=== PATIENT | female | born 1985 | race Caucasian/White ===

== ENCOUNTER 2019-10-11 18:36 | Emergency (ER) | payer MEDICAID ==
[~2019-10-11] VITALS: Ht 167.6 cm; Wt 62.1 kg
[2019-10-11] MEDS ORDERED: LORazepam 1MG TABLET ONE (19:30)
[2019-10-11] MEDS ORDERED: LORazepam 1MG TABLET PO ONE (19:30)
[2019-10-11 19:38] LABS: BASOPHILS # (AUTO) 0.02 x10^3/uL (0-0.1); BASOPHILS % (AUTO) 0 % (0-1); EOSINOPHILS # (AUTO) 0.04 x10^3/uL (0-0.4); EOSINOPHILS % (AUTO) 1 % (1-7); LYMPHOCYTES # (AUTO) 2.51 x10^3/uL (1-3.4); LYMPHOCYTES % (AUTO) 30 % (22-44); MD NO; MEAN CORPUSCULAR HEMOGLOBIN 31.6 pg (27.0-34.8); MEAN CORPUSCULAR VOLUME 95.6 fL (80-100); MEAN PLATELET VOLUME 9.8 fL (7.4-10.4); MONOCYTES # (AUTO) 0.37 x10^3/uL (0.2-0.8); MONOCYTES % (AUTO) 4 % (2-9); NEUTROPHILS # (AUTO) 5.55 x10^3/uL (1.8-6.8); NEUTROPHILS % (AUTO) 65 % (42-75); PLATELET COUNT 261 x10^3/uL (130-400); RED BLOOD COUNT 4.59 x10^6/uL (3.82-5.3); RED CELL DISTRIBUTION WIDTH 15.1 % (9.6-15.2)
--- NOTE | 2019-10-11 19:38 | NUR ---
PT AMBULATED TO RESTROOM WITH STEADY GAIT TO PROVIDE URINE SAMPLE. UA COLLECTED AND SENT TO LAB. MEDS ADMIN PER JUL. SEIZURE PADS PLACE D/T HX OF SEIZURES WITH ETOH WD. FRIEND AT BEDSIDE.
[2019-10-11 19:49] LABS: INTERNATIONAL NORMALIZED RATIO 1.01 (0.93-1.1); PROTHROMBIN TIME 10.7 Seconds (9.6-11.5)
[2019-10-11 19:50] LABS: ALANINE AMINOTRANSFERASE 41 U/L (12-78); ANION GAP 13 mmol/L (5-15); CALCIUM 8.5 mg/dL (8.5-10.1); CHLORIDE 106 mmol/L (98-107); CREATININE 0.84 mg/dL (0.55-1.02)
[2019-10-11 19:52] LABS: ALKALINE PHOSPHATASE 42 U/L (45-117); BILIRUBIN,TOTAL 0.7 mg/dL (0.2-1.0)
[2019-10-11] MEDS ORDERED: ONDANSETRON ODT 4 MG ONE (19:52)
[2019-10-11 19:53] LABS: HCG UR SG 1.007 (1.003-1.030); MICROSCOPIC NOT IND
--- NOTE | 2019-10-11 19:59 | NUR ---
PT C/O NAUSEA, INFORMED. VERBAL ORDER RECEIVED FOR ZOFRAN 4MG SL ONCE.
[2019-10-11] MEDS ORDERED: ONDANSETRON ODT 4 MG PO ONE (20:00)
--- NOTE | 2019-10-11 20:10 | NUR ---
ALL RESULTS ARE BACK AT THIS TIME. CHART UP FOR RECHECK.
[2019-10-11 21:17] VITALS: BP 98/62
== END 2019-10-11 21:37 | disposition home or self-care (01) ==
LOC: ED 20:58
DX: F10.239 Alcohol dependence with withdrawal, unspecified (principal); R45.1 Restlessness and agitation; M79.10 Myalgia, unspecified site; Y90.0 Blood alcohol level of less than 20 mg/100 ml
CPT/HCPCS: 36415; 80053; 81003; 81025; 83690; 85025; 85610; 99283; Q0162

== ENCOUNTER 2019-12-17 12:10 | Emergency (ER) | payer MEDICAID ==
[~2019-12-17] VITALS: Ht 170.2 cm; Wt 57.4 kg
--- NOTE | 2019-12-17 12:40 | NUR ---
PT TO RM FROM LOBBY AT THIS TIME
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
[2019-12-17 13:14] LABS: BASOPHILS # (AUTO) 0.01 x10^3/uL (0-0.1); BASOPHILS % (AUTO) 0 % (0-1); EOSINOPHILS % (AUTO) 0 % (1-7); LYMPHOCYTES # (AUTO) 1.92 x10^3/uL (1-3.4); LYMPHOCYTES % (AUTO) 16 % (22-44); MD NO; MEAN CORPUSCULAR HEMOGLOBIN 32.2 pg (27.0-34.8); MEAN CORPUSCULAR HGB CONC 33.8 g/dL (32.4-35.8); MEAN CORPUSCULAR VOLUME 95.3 fL (80-100); MEAN PLATELET VOLUME 9.4 fL (7.4-10.4); MONOCYTES # (AUTO) 0.38 x10^3/uL (0.2-0.8); MONOCYTES % (AUTO) 3 % (2-9); NEUTROPHILS # (AUTO) 9.72 x10^3/uL (1.8-6.8); NEUTROPHILS % (AUTO) 81 % (42-75); PLATELET COUNT 285 x10^3/uL (130-400); RED CELL DISTRIBUTION WIDTH 14.2 % (9.6-15.2)
[2019-12-17 13:27] LABS: ALBUMIN 3.9 g/dL (3.4-5.0); ANION GAP 10 mmol/L (5-15); CHLORIDE 105 mmol/L (98-107)
[2019-12-17 13:33] LABS: ALANINE AMINOTRANSFERASE 34 U/L (12-78); ALKALINE PHOSPHATASE 48 U/L (45-117); BILIRUBIN,TOTAL 1.6 mg/dL (0.2-1.0); CREATININE 0.64 mg/dL (0.55-1.02); TOTAL PROTEIN 7.8 g/dL (6.4-8.2)
[2019-12-17 13:55] VITALS: BP 106/71
--- NOTE | 2019-12-17 13:56 | NUR ---
TASK RN: AWAITING RE-EVAL. NOTED TO HAVE SLURRED SPEECH, NO DISTRESS.
[2019-12-17] MEDS ORDERED: LORazepam 1MG TABLET ONE (16:26)
[2019-12-17] MEDS ORDERED: LORazepam 1MG TABLET PO ONE (16:30)
--- NOTE | 2019-12-17 16:41 | NUR ---
Note alvin in ED - 12/17/19 at 1643 by GOVIND PT AMBULATORY WITH STEADY GAIT, UP TO BR WITHOUT ASSIST. PT REQUESTING TO BE DISCHARGED HOME WITH ATIVAN TO PREVENT WITHDRAWL. PT MEDICATED PER JUL. GIVEN DISCHARGE INSTRUCTIONS AND RESOURCES.
== END 2019-12-17 16:52 | disposition home or self-care (01) ==
LOC: ED 14:00
DX: F10.220 Alcohol dependence with intoxication, uncomplicated (principal); F10.230 Alcohol dependence with withdrawal, uncomplicated; R11.0 Nausea; R10.12 Left upper quadrant pain; R45.1 Restlessness and agitation; R94.31 Abnormal electrocardiogram [ECG] [EKG]; Y90.0 Blood alcohol level of less than 20 mg/100 ml
CPT/HCPCS: 36415; 80053; 80307; 83690; 84703; 85025; 93005; 99284

== ENCOUNTER 2020-01-12 12:05 | Emergency (ER) | payer MEDICAID ==
[~2020-01-12] VITALS: Ht 167.6 cm; Wt 57.5 kg
--- NOTE | 2020-01-12 12:48 | NUR ---
PT HERE FOR C/O LACK OF APPETITE AND FEELING WEAK OVER THE LAST 3 MONTHS, AND MOST RECENTLY CRAMPS ON LEGS AND FEET. PLACED ON VITALS MONITORS. PROVIDER AT BEDSIDE FOR EVAL.
[2020-01-12] MEDS ORDERED: ONDANSETRON 2MG/ML, 2ML IVPush ONE (13:00)
[2020-01-12] MEDS ORDERED: FAMOTIDINE 20 MG/2 ML IV ONE (13:00)
[2020-01-12] MEDS ORDERED: SODIUM CHLORIDE 0.9% 1,000ML IVBOLUS ONE (13:00)
[2020-01-12 13:08] LABS: BASOPHILS # (AUTO) 0.02 x10^3/uL (0-0.1); BASOPHILS % (AUTO) 0 % (0-1); EOSINOPHILS # (AUTO) 0.03 x10^3/uL (0-0.4); EOSINOPHILS % (AUTO) 0 % (1-7); LYMPHOCYTES # (AUTO) 1.25 x10^3/uL (1-3.4); LYMPHOCYTES % (AUTO) 20 % (22-44); MD NO; MEAN CORPUSCULAR HEMOGLOBIN 32.6 pg (27.0-34.8); MEAN CORPUSCULAR HGB CONC 33.6 g/dL (32.4-35.8); MEAN PLATELET VOLUME 8.9 fL (7.4-10.4); MONOCYTES # (AUTO) 0.29 x10^3/uL (0.2-0.8); MONOCYTES % (AUTO) 5 % (2-9); NEUTROPHILS # (AUTO) 4.57 x10^3/uL (1.8-6.8); NEUTROPHILS % (AUTO) 74 % (42-75); PLATELET COUNT 345 x10^3/uL (130-400); RED BLOOD COUNT 4.42 x10^6/uL (3.82-5.3); RED CELL DISTRIBUTION WIDTH 13.9 % (9.6-15.2)
[2020-01-12] MEDS ORDERED: ONDANSETRON 2MG/ML, 2ML ONE (13:08)
[2020-01-12] MEDS ORDERED: FAMOTIDINE 20 MG/2 ML ONE (13:08)
[2020-01-12] MEDS ORDERED: TRAZ-175 PO (13:12)
[2020-01-12] MEDS ORDERED: MAALOX/HYOSCYAMINE/LIDOCAINE 45 ML BTL ONE (13:17)
[2020-01-12 13:19] LABS: ALANINE AMINOTRANSFERASE 36 U/L (12-78); ALBUMIN 3.8 g/dL (3.4-5.0); ANION GAP 6 mmol/L (5-15); CALCIUM 8.5 mg/dL (8.5-10.1); CHLORIDE 105 mmol/L (98-107); CREATININE 0.82 mg/dL (0.55-1.02)
[2020-01-12 13:24] LABS: ALKALINE PHOSPHATASE 49 U/L (45-117); BILIRUBIN,TOTAL 1.4 mg/dL (0.2-1.0); TOTAL PROTEIN 8.1 g/dL (6.4-8.2)
[2020-01-12] MEDS ORDERED: MAALOX/HYOSCYAMINE/LIDOCAINE 45 ML BTL PO ONE (13:30)
[2020-01-12 13:49] LABS: MICROSCOPIC NOT IND
[2020-01-12 14:36] VITALS: BP 111/78
--- NOTE | 2020-01-12 14:44 | NUR ---
PT RESTING ON MUSHTAQ MCINTOSH. CALL LIGHT WITHIN REACH.
--- NOTE | 2020-01-12 15:36 | NUR ---
PT TRANSPORTED TO CT.
--- NOTE | 2020-01-12 16:46 | NUR ---
TASK RN: PT TO CT AT THIS TIME
== END 2020-01-12 17:52 | disposition home or self-care (01) ==
LOC: ED 14:11
DX: K29.00 Acute gastritis without bleeding (principal); R11.2 Nausea with vomiting, unspecified
CPT/HCPCS: 36415; 74021; 74177; 80053; 81003; 83690; 83735; 84703; 85025; 96361; 96374; 96375; 99285; J2405; J3490; J7030

== ENCOUNTER 2020-02-06 00:46 | Emergency (ER) | payer MEDICAID ==
[~2020-02-06] VITALS: Ht 167.6 cm; Wt 57.0 kg
[~2020-02-06 00:46] MED LIST: TRAZ-175 PO
[2020-02-06] MEDS ORDERED: SODIUM CHLORIDE 0.9% 1,000ML IVBOLUS ONE (01:00)
[2020-02-06] MEDS ORDERED: MORPHINE SULFATE 4 MG/ML, 1ML IVPush PRN (01:00)
[2020-02-06] MEDS ORDERED: ONDANSETRON 2MG/ML, 2ML IVPush ONE (01:00)
[2020-02-06] MEDS ORDERED: SODIUM CHLORIDE FLUSH 10ML SYR IVF ONE (01:00)
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
[2020-02-06] MEDS ORDERED: MORPHINE SULFATE 4 MG/ML, 1ML ONE (01:02)
[2020-02-06] MEDS ORDERED: ONDANSETRON 2MG/ML, 2ML ONE (01:03)
[2020-02-06 01:29] LABS: BASOPHILS # (AUTO) 0.02 x10^3/uL (0-0.1); BASOPHILS % (AUTO) 0 % (0-1); EOSINOPHILS # (AUTO) 0.02 x10^3/uL (0-0.4); EOSINOPHILS % (AUTO) 0 % (1-7); LYMPHOCYTES # (AUTO) 1.92 x10^3/uL (1-3.4); LYMPHOCYTES % (AUTO) 21 % (22-44); MD NO; MEAN CORPUSCULAR HEMOGLOBIN 32.5 pg (27.0-34.8); MEAN CORPUSCULAR HGB CONC 33.2 g/dL (32.4-35.8); MEAN PLATELET VOLUME 8.8 fL (7.4-10.4); MONOCYTES # (AUTO) 0.27 x10^3/uL (0.2-0.8); MONOCYTES % (AUTO) 3 % (2-9); NEUTROPHILS # (AUTO) 7.15 x10^3/uL (1.8-6.8); NEUTROPHILS % (AUTO) 76 % (42-75); PLATELET COUNT 304 x10^3/uL (130-400); RED BLOOD COUNT 4.05 x10^6/uL (3.82-5.3); RED CELL DISTRIBUTION WIDTH 14.3 % (9.6-15.2)
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
[2020-02-06 01:42] LABS: ALANINE AMINOTRANSFERASE 33 U/L (12-78); ALBUMIN 3.1 g/dL (3.4-5.0); ANION GAP 7 mmol/L (5-15); CALCIUM 7.9 mg/dL (8.5-10.1); CHLORIDE 109 mmol/L (98-107); CREATININE 0.73 mg/dL (0.55-1.02)
[2020-02-06 01:47] LABS: ALKALINE PHOSPHATASE 58 U/L (45-117); BILIRUBIN,TOTAL 0.4 mg/dL (0.2-1.0); TOTAL PROTEIN 7.4 g/dL (6.4-8.2)
[2020-02-06] MEDS ORDERED: PANTOPRAZOLE 40 MG IV IVPush ONE (02:00)
[2020-02-06] MEDS ORDERED: PANTOPRAZOLE 40 MG IV ONE (02:12)
[2020-02-06 02:16] LABS: MICROSCOPIC INDICATED
[2020-02-06 02:20] VITALS: BP 108/70
[2020-02-06 02:20] LABS: AMPHETAMINE SCREEN, URINE Negative (Negative); BARBITURATE SCREEN, URINE Negative (Negative); BENZODIAZEPINE SCREEN, URINE Positive (Negative); CANNABINOID SCREEN, URINE Positive (Negative); COCAINE SCREEN, URINE Negative (Negative); METHADONE SCREEN, URINE Negative (Negative); OPIATE SCREEN, URINE Positive (Negative)
[2020-02-06] MEDS ORDERED: CIPROFLOXACIN 500 MG TABLET PO ONE (02:30)
--- NOTE | 2020-02-06 02:31 | NUR ---
PATIENT MEDICATED PER EMAR, TOLERATED WELL.
[2020-02-06] MEDS ORDERED: CIPROFLOXACIN 500 MG TABLET ONE (02:35)
--- NOTE | 2020-02-06 02:53 | NUR ---
Patient given discharge instructions and they have confirmed that they understand the instructions. Patient ambulatory with steady gait in room, wheeled to discharge for patient comfort
--- NOTE | 2020-02-08 14:55 | NUR ---
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
== END 2020-02-06 02:55 | disposition home or self-care (01) ==
LOC: ED 01:34
DX: N30.00 Acute cystitis without hematuria (principal); K29.20 Alcoholic gastritis without bleeding; R10.13 Epigastric pain
CPT/HCPCS: 36415; 80053; 80307; 81001; 83690; 84703; 85025; 87077; 87086; 87186; 96361; 96374; 96375; 99284; C9113; J2270; J2405; J7030

== ENCOUNTER 2020-02-09 11:08 | Emergency (ER) | payer MEDICAID ==
[~2020-02-09] VITALS: Ht 167.6 cm; Wt 58.0 kg
[2020-02-09] MEDS ORDERED: FAMOTIDINE 20 MG/2 ML ONE (11:45)
[2020-02-09] MEDS ORDERED: MAALOX/HYOSCYAMINE/LIDOCAINE 45 ML BTL ONE (11:45)
[2020-02-09] MEDS ORDERED: MORPHINE SULFATE 4 MG/ML, 1ML ONE (11:45)
[2020-02-09] MEDS ORDERED: ONDANSETRON 2MG/ML, 2ML ONE (11:45)
[2020-02-09] MEDS ORDERED: FAMOTIDINE 20 MG/2 ML IV ONE (12:00)
[2020-02-09] MEDS ORDERED: ONDANSETRON 2MG/ML, 2ML IVPush ONE (12:00)
[2020-02-09] MEDS ORDERED: SODIUM CHLORIDE FLUSH 10ML SYR IVF ONE (12:00)
[2020-02-09] MEDS ORDERED: SODIUM CHLORIDE 0.9% 1,000ML IVBOLUS ONE (12:00)
[2020-02-09] MEDS ORDERED: MAALOX/HYOSCYAMINE/LIDOCAINE 45 ML BTL PO ONE (12:00)
[2020-02-09 12:11] LABS: BASOPHILS % (AUTO) 1 % (0-1); EOSINOPHILS % (AUTO) 1 % (1-7); LYMPHOCYTES % (AUTO) 43 % (22-44); MEAN CORPUSCULAR HEMOGLOBIN 32.6 pg (27.0-34.8); MEAN CORPUSCULAR HGB CONC 34.2 g/dL (32.4-35.8); MEAN PLATELET VOLUME 9.2 fL (7.4-10.4); MONOCYTES % (AUTO) 6 % (2-9); NEUTROPHILS % (AUTO) 49 % (42-75); PLATELET COUNT 331 x10^3/uL (130-400); RED BLOOD COUNT 4.46 x10^6/uL (3.82-5.3); RED CELL DISTRIBUTION WIDTH 13.4 % (9.6-15.2)
[2020-02-09 12:12] LABS: MD NO
[2020-02-09 12:53] LABS: ALANINE AMINOTRANSFERASE 37 U/L (12-78); ALBUMIN 3.6 g/dL (3.4-5.0); ANION GAP 5 mmol/L (5-15); CALCIUM 8.5 mg/dL (8.5-10.1); CHLORIDE 110 mmol/L (98-107); CREATININE 0.73 mg/dL (0.55-1.02)
[2020-02-09 13:00] LABS: ALKALINE PHOSPHATASE 76 U/L (45-117); BILIRUBIN,TOTAL 0.5 mg/dL (0.2-1.0); TOTAL PROTEIN 8.3 g/dL (6.4-8.2)
[2020-02-09 13:53] VITALS: BP 135/87
--- NOTE | 2020-02-09 14:01 | NUR ---
PT DENIES N/V AFTER PO FLUIDS.
== END 2020-02-09 15:14 | disposition home or self-care (01) ==
LOC: ED 11:57
DX: K29.21 Alcoholic gastritis with bleeding (principal); R19.5 Other fecal abnormalities; N30.00 Acute cystitis without hematuria; Z88.5 Allergy status to narcotic agent; Z87.891 Personal history of nicotine dependence
CPT/HCPCS: 36415; 80053; 83690; 84703; 85025; 96361; 96374; 96375; 99284; J2405; J3490; J7030; 96376

== ENCOUNTER 2020-02-11 05:31 | Emergency (ER) | payer MEDICAID ==
[~2020-02-11] VITALS: Ht 167.6 cm; Wt 63.8 kg
--- NOTE | 2020-02-11 05:46 | NUR ---
Patient BIB ambulance c/o general malaise, vomiting blood, and diarrhea with blood. Patient states she was a heavy drinker then quit awhile ago, but relapsed two weeks ago. She states she has been drinking non-stop since then. Her last drink was yesterday around 0800. Patient states she was recently dx with e.coli. She has not been able to eat or drink anything x2 days. Per EMS, patient was unresponsive on arrival. She had +orthostatics. She became AAO en route to hospital. She received Zofran and 500mL NS VOCATIONAL NURSE LVN. Patient has generalized weakness and slow speech. Respirations even and unlabored.
[2020-02-11] MEDS ORDERED: SODIUM CHLORIDE 0.9% 1,000ML IVBOLUS ONE (06:00)
[2020-02-11] MEDS ORDERED: METOCLOPRAMIDE 5 MG/ML, 2ML IVPush ONE (06:00)
[2020-02-11] MEDS ORDERED: FAMOTIDINE 20 MG/2 ML IV ONE (06:00)
[2020-02-11] MEDS ORDERED: METOCLOPRAMIDE 5 MG/ML, 2ML ONE (06:09)
[2020-02-11] MEDS ORDERED: FAMOTIDINE 20 MG/2 ML ONE (06:09)
[2020-02-11 06:26] LABS: ALANINE AMINOTRANSFERASE 42 U/L (12-78); ALBUMIN 3.3 g/dL (3.4-5.0); ANION GAP 7 mmol/L (5-15); CALCIUM 7.9 mg/dL (8.5-10.1); CHLORIDE 110 mmol/L (98-107)
[2020-02-11 06:28] LABS: ALKALINE PHOSPHATASE 78 U/L (45-117); BILIRUBIN,TOTAL 0.4 mg/dL (0.2-1.0); CREATININE 0.84 mg/dL (0.55-1.02); TOTAL PROTEIN 7.6 g/dL (6.4-8.2)
[2020-02-11] MEDS ORDERED: PLEASE ENTER HEIGHT AND WEIGHT MC SCH ×2 (06:30)
--- NOTE | 2020-02-11 06:37 | NUR ---
Straight cath performed; urine sent to lab.
[2020-02-11 06:39] LABS: BASOPHILS % (AUTO) 1 % (0-1); EOSINOPHILS % (AUTO) 0 % (1-7); LYMPHOCYTES % (AUTO) 31 % (22-44); MEAN CORPUSCULAR HEMOGLOBIN 32.1 pg (27.0-34.8); MEAN CORPUSCULAR HGB CONC 33.2 g/dL (32.4-35.8); MEAN PLATELET VOLUME 9.2 fL (7.4-10.4); MONOCYTES % (AUTO) 4 % (2-9); NEUTROPHILS % (AUTO) 64 % (42-75); PLATELET COUNT 235 x10^3/uL (130-400); RED BLOOD COUNT 4.42 x10^6/uL (3.82-5.3); RED CELL DISTRIBUTION WIDTH 13.9 % (9.6-15.2)
[2020-02-11 06:57] LABS: MD NO
[2020-02-11 07:00] LABS: MICROSCOPIC NOT IND
[2020-02-11] MEDS ORDERED: THIAMINE 100MG TABLET PO ONE (07:30)
[2020-02-11] MEDS ORDERED: THIAMINE 100MG TABLET ONE (07:31)
[2020-02-11 07:58] VITALS: BP 103/74
== END 2020-02-11 08:01 | disposition home or self-care (01) ==
LOC: ED 06:43
DX: K29.20 Alcoholic gastritis without bleeding (principal); F10.220 Alcohol dependence with intoxication, uncomplicated; R55 Syncope and collapse; R10.10 Upper abdominal pain, unspecified; Y90.0 Blood alcohol level of less than 20 mg/100 ml
CPT/HCPCS: 36415; 80053; 80307; 81003; 83690; 85025; 93005; 96374; 96375; 99284; J2765; J3490; J7030

== ENCOUNTER 2020-03-07 07:49 | Emergency (ER) | payer MEDICAID ==
[~2020-03-07] VITALS: Ht 165.1 cm; Wt 60.0 kg
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
--- NOTE | 2020-03-07 08:26 | NUR ---
PATIENT NOW STATING SHE'S TOTALLY FINE AND SHE WANTS TO GO HOME. REASSURED HER SHE NEEDS TO STAY, THAT [place] PD HAS BEEN CONSULTED AND SHE NEEDS MEDICAL CARE
[2020-03-07 08:32] LABS: MEAN CORPUSCULAR HEMOGLOBIN 32.1 pg (27.0-34.8); MEAN CORPUSCULAR HGB CONC 32.7 g/dL (32.4-35.8); MEAN PLATELET VOLUME 8.2 fL (7.4-10.4); PLATELET COUNT 287 x10^3/uL (130-400); RED BLOOD COUNT 4.28 x10^6/uL (3.82-5.3); RED CELL DISTRIBUTION WIDTH 14.5 % (9.6-15.2)
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
[2020-03-07 08:42] LABS: ALANINE AMINOTRANSFERASE 36 U/L (12-78); ALBUMIN 3.5 g/dL (3.4-5.0); ANION GAP 8 mmol/L (5-15); CALCIUM 8.6 mg/dL (8.5-10.1); CHLORIDE 110 mmol/L (98-107); CREATININE 0.69 mg/dL (0.55-1.02)
[2020-03-07 08:44] LABS: ALKALINE PHOSPHATASE 83 U/L (45-117); BILIRUBIN,TOTAL 0.3 mg/dL (0.2-1.0); TOTAL PROTEIN 8.3 g/dL (6.4-8.2)
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
[2020-03-07 08:48] LABS: SALICYLATE LEVEL < 1.7 mg/dL (2.8-20.0)
[2020-03-07 09:09] LABS: AMPHETAMINE SCREEN, URINE Negative (Negative); BARBITURATE SCREEN, URINE Negative (Negative); CANNABINOID SCREEN, URINE Negative (Negative); COCAINE SCREEN, URINE Negative (Negative); METHADONE SCREEN, URINE Negative (Negative); OPIATE SCREEN, URINE Negative (Negative)
[2020-03-07 09:09] LABS: MD YES
--- NOTE | 2020-03-07 09:10 | NUR ---
got patient juice and ordered diet tray. patient alcohol 0.41. will redraw in a few hours.
[2020-03-07 09:11] LABS: BENZODIAZEPINE SCREEN, URINE Positive (Negative)
[2020-03-07 09:11] LABS: <PLATELET ESTIMATE> ADEQUATE; <PLT MORPHOLOGY> NORMAL PLT MORPH; <RBC MORPHOLOGY> NORMAL; BASOS#(MANUAL) 0.03 x10^3/uL (0-0.1); BASOS% (MANUAL) 1 % (0-1); EOS#(MANUAL) 0.03 x10^3/uL (0.0-0.4); EOS% (MANUAL) 1 % (1-7); LYMPHS% (MANUAL) 44 % (22-44); MONOS#(MANUAL) 0.34 x10^3/uL (0.3-2.7); MONOS% (MANUAL) 10 % (2-9); SEGS% (MANUAL) 44 % (42-75)
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
--- NOTE | 2020-03-07 10:01 | NUR ---
she ate all of meal tray
--- NOTE | 2020-03-07 10:31 | NUR ---
RUBÉN HERE TAKING STATEMENT
--- NOTE | 2020-03-07 11:22 | NUR ---
PATIENT UP TO BATHROOM, HAD 400 ML OUT CLEAR YELLOW URINE.
--- NOTE | 2020-03-07 11:40 | NUR ---
OFFICER DAPHNE TOOK PATIENTS CLOTHES EVIDENCE AND SART TEAM TO COME ASSESS PATIENT. PATIENTS PURSE IS IN BELONGINGS LOCKER
--- NOTE | 2020-03-07 11:44 | NUR ---
POLICE RETURNED CLOTHES APPARENTLY THEY ARE NOT EVIDENCE, PUT ON LOCKER.
--- NOTE | 2020-03-07 12:28 | NUR ---
PATIENT RESTING QUIETLY.
--- NOTE | 2020-03-07 12:58 | NUR ---
CHECKED TWO BOTTLES OF PROPANOLOL INTO PHARMACY, THEY DATE FROM NOVEMBER AND DEC AND AND THERE ARE HIGH QUANTITIES IN BOTH BOTTLES.
--- NOTE | 2020-03-07 13:32 | NUR ---
TALKED TO MD ABOUT REDRAW OF BLOOD ALCOHOL, IN PROGRESS.
--- NOTE | 2020-03-07 13:47 | NUR ---
[phone] EMERGENCY CONTACT. WANTS UPDATE
--- NOTE | 2020-03-07 14:18 | NUR ---
PATIENT SWEATY AND STATES FEELS HEART RACING, STATES ON LIBRIUM (JUST TOLD ME THIS) FOR ALCOHOL WITHDRAWAL. WILL ALERT MD FOR POSSIBLE EKG AND TAKING VITALS.
[2020-03-07] MEDS ORDERED: LIBRIUM PO (14:20)
[2020-03-07] MEDS ORDERED: CLON-275 PO (14:22)
[2020-03-07] MEDS ORDERED: PROP10TA16 PO (14:22)
[2020-03-07] MEDS ORDERED: QUET25TA5 PO (14:22)
--- NOTE | 2020-03-07 14:34 | NUR ---
12 lead completed erp aware rachel
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
--- NOTE | 2020-03-07 16:01 | NUR ---
HELPED PATIENT CALL [facility] TO RESCHEDULE HER INTERVIEW. SHE IS TREMULOUS. WILL FOLLOW UP WITH MD ABOUT BENZO
[2020-03-07] MEDS ORDERED: ONDANSETRON ODT 4 MG ONE (16:04)
[2020-03-07] MEDS ORDERED: LORazepam 1MG TABLET ONE (16:05)
--- NOTE | 2020-03-07 16:13 | NUR ---
PATIENT BARFING AND TREMULOUS. TALKED TO MD AND MEDS ORDERED. GAVE ZOFRAN, AND THEN TALKED TO MD ABOUT A PREG TEST PRIOR TO ATIVAN ADMINISTRATION. PATIENT STATES PERIOD A WEEK AGO BUT IS UNCERTAIN IF , STATES DOUBTFUL.
[2020-03-07] MEDS ORDERED: LORazepam 1MG TABLET PO ONE ×2 (16:30→17:00)
[2020-03-07] MEDS ORDERED: ONDANSETRON ODT 4 MG PO ONE (16:30)
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
--- NOTE | 2020-03-07 17:17 | NUR ---
TELEPSYCH IN ROOM, TECH AWARE OF #
--- NOTE | 2020-03-07 17:20 | NUR ---
LET MD KNOW THAT PATIENT MEDICALLY READY FOR TELEPSYCH, AND TELEPSYCH ORDERED.
--- NOTE | 2020-03-07 17:39 | NUR ---
GAVE PATIENT DINNER
--- NOTE | 2020-03-07 17:42 | NUR ---
CALLED ERON BACK TO VERIFY THAT HE WAS WITH HER LAST NIGHT. 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 SHE WAS IN AND OUT ASLEEP, HE STATES SHE WAS SOMEWHAT OUT OF IT AND HE THOUGHT IT WAS JUST HER TAKING HER SLEEPING PILLS AND THIS IS SOMEWHAT NORMAL BEHAVIOR FOR HER. HE DOES'T DRINK.
--- NOTE | 2020-03-07 17:46 | NUR ---
ERON STATES THERE ARE CAMERAS AT HER APT BUILDING - [id number] - TO VERIFY THEY WERE HOME.
--- NOTE | 2020-03-07 18:00 | NUR ---
PATIENT TALKING TO TELEPSYCH
--- NOTE | 2020-03-07 18:53 | NUR ---
LET ERON FRIEND VISIT SO LONG THEY ARE CALM. HE CONFRONTED PATIENT WITH HER DISHONESTY LAST NIGHT, SHE TEARED UP CRYING AND DIDN'T SAY MUCH. LET THEM VISIT
--- NOTE | 2020-03-07 19:02 | NUR ---
PATIENT CARE RELIQUINSHED TO ED RN, SBAR.
--- NOTE | 2020-03-07 20:08 | NUR ---
Patient/Caregiver given discharge instructions and they have confirmed that they understand the instructions. Patient ambulatory with steady gait.
[2020-03-07 20:09] VITALS: BP 122/81
== END 2020-03-07 20:19 | disposition home or self-care (01) ==
LOC: ED 09:09
DX: T50.991A Poisoning by other drugs, medicaments and biological substances, accidental (unintentional), initial encounter (principal); F10.220 Alcohol dependence with intoxication, uncomplicated; R51.9 Headache, unspecified; R00.0 Tachycardia, unspecified; Z87.891 Personal history of nicotine dependence; Y90.0 Blood alcohol level of less than 20 mg/100 ml; Y04.8XXA Assault by other bodily force, initial encounter; Y93.89 Activity, other specified; Y92.89 Other specified places as the place of occurrence of the external cause; Y99.8 Other external cause status
CPT/HCPCS: 36415; 80053; 80307; 84702; 85025; 93005; 99285; Q0162; 99406

== ENCOUNTER 2020-06-23 03:17 | Emergency (ER) | payer MEDICAID ==
[~2020-06-23] VITALS: Ht 167.6 cm; Wt 60.0 kg
[~2020-06-23 03:17] MED LIST changes: +CLON-275 PO; +LIBRIUM PO; +PROP10TA16 PO; +QUET25TA5 PO
--- NOTE | 2020-06-23 03:36 | NUR ---
INITIAL PT CONTACT. PT PRESENTS TO ED C/O ABD PAIN AND VOMITING BLOOD, "GOING ON FOR ABOUT 2 MONTHS." PT STATES SHE HAS "BEEN VOMITING BLOOD AND PASSING OUT." PT IS SUPPOSED TO HAVE GALLBLADDER SURGERY LATER THIS WEEK. PT ACCOMPAINIED BY SPOUSE. PT SITTING UPRIGHT ON GURNEY, CALL LIGHT AND PERSONAL BELONGINGS WITHIN REACH. ERP AT BEDSIDE.
[2020-06-23] MEDS ORDERED: DICYCLOMINE 10 MG/ML, 2ML ONE (03:44)
[2020-06-23] MEDS ORDERED: ONDANSETRON 2MG/ML, 2ML ONE (03:44)
[2020-06-23 03:58] LABS: MEAN CORPUSCULAR HEMOGLOBIN 34.1 pg (27.0-34.8); MEAN CORPUSCULAR HGB CONC 33.6 g/dL (32.4-35.8); PLATELET COUNT 242 x10^3/uL (130-400); RED BLOOD COUNT 4.11 x10^6/uL (3.82-5.3); RED CELL DISTRIBUTION WIDTH 15.3 % (9.6-15.2)
[2020-06-23] MEDS ORDERED: SODIUM CHLORIDE FLUSH 10ML SYR IVF ONE (04:00)
[2020-06-23] MEDS ORDERED: SODIUM CHLORIDE 0.9% 1,000ML IVBOLUS ONE (04:00)
[2020-06-23] MEDS ORDERED: DICYCLOMINE 10 MG/ML, 2ML IM ONE (04:00)
[2020-06-23] MEDS ORDERED: ONDANSETRON 2MG/ML, 2ML IVPush ONE (04:00)
[2020-06-23 04:08] LABS: ALANINE AMINOTRANSFERASE 35 U/L (12-78); ALBUMIN 3.2 g/dL (3.4-5.0); ANION GAP 12 mmol/L (5-15); CALCIUM 8.3 mg/dL (8.5-10.1); CHLORIDE 109 mmol/L (98-107); CREATININE 0.67 mg/dL (0.55-1.02)
[2020-06-23 04:13] LABS: ALKALINE PHOSPHATASE 103 U/L (45-117); BILIRUBIN,TOTAL 0.2 mg/dL (0.2-1.0); TOTAL PROTEIN 8.1 g/dL (6.4-8.2)
[2020-06-23 04:22] LABS: MD YES
[2020-06-23 04:26] LABS: ANISOCYTOSIS 1+; BAND#(MANUAL) 0.03 x10^3/uL; BANDS%(MANUAL) 1 % (0-7); BASOS#(MANUAL) 0.03 x10^3/uL (0-0.1); BASOS% (MANUAL) 1 % (0-1); EOS#(MANUAL) 0.03 x10^3/uL (0.0-0.4); EOS% (MANUAL) 1 % (1-7); LYMPH#(MANUAL) 1.87 x10^3/uL (1-3.4); LYMPHS% (MANUAL) 55 % (22-44); MONOS#(MANUAL) 0.17 x10^3/uL (0.3-2.7); MONOS% (MANUAL) 5 % (2-9); SEG#(MANUAL) 1.26 x10^3/uL (1.8-6.8); SEGS% (MANUAL) 37 % (42-75)
[2020-06-23 04:27] LABS: <PLATELET ESTIMATE> ADEQUATE; <PLT MORPHOLOGY> NORMAL PLT MORPH
[2020-06-23 05:16] VITALS: BP 112/74
--- NOTE | 2020-06-23 05:22 | NUR ---
Patient given discharge instructions and they have confirmed that they understand the instructions. Patient ambulatory with steady gait to d/c desk.
== END 2020-06-23 05:24 | disposition home or self-care (01) ==
LOC: ED 05:08
DX: K29.20 Alcoholic gastritis without bleeding (principal); R10.13 Epigastric pain; R11.10 Vomiting, unspecified; F10.129 Alcohol abuse with intoxication, unspecified; Y90.0 Blood alcohol level of less than 20 mg/100 ml
CPT/HCPCS: 36415; 80053; 80320; 83690; 84703; 85025; 93005; 96361; 96372; 96374; 99284; J0500; J2405; J7030; G0480

== ENCOUNTER 2020-08-15 22:57 | Emergency (ER) | payer MEDICAID ==
[~2020-08-15] VITALS: Ht 167.6 cm; Wt 58.0 kg
[2020-08-15] MEDS ORDERED: PROMETHAZINE 25 MG/ML, 1ML ONE (23:42)
[2020-08-15] MEDS ORDERED: FAMOTIDINE 20 MG/2 ML ONE (23:44)
[2020-08-15] MEDS ORDERED: HYDROmorphone 1 MG/ML, 1ML INJ ONE (23:44)
[2020-08-16] MEDS ORDERED: SODIUM CHLORIDE FLUSH 10ML SYR IVF ONE
[2020-08-16] MEDS ORDERED: PROMETHAZINE 25 MG/ML, 1ML IM ONE
[2020-08-16] MEDS ORDERED: FAMOTIDINE 20 MG/2 ML IVPush ONE
[2020-08-16] MEDS ORDERED: SODIUM CHLORIDE 0.9% 1,000ML IVBOLUS ONE
[2020-08-16 00:01] LABS: BASOPHILS % (AUTO) 1 % (0-1); EOSINOPHILS % (AUTO) 0 % (1-7); LYMPHOCYTES % (AUTO) 11 % (22-44); MEAN CORPUSCULAR HEMOGLOBIN 31.9 pg (27.0-34.8); MEAN CORPUSCULAR HGB CONC 33.6 g/dL (32.4-35.8); MEAN PLATELET VOLUME 9.7 fL (7.4-10.4); MONOCYTES % (AUTO) 3 % (2-9); NEUTROPHILS % (AUTO) 85 % (42-75); PLATELET COUNT 197 x10^3/uL (130-400); RED BLOOD COUNT 4.26 x10^6/uL (3.82-5.3); RED CELL DISTRIBUTION WIDTH 14.8 % (9.6-15.2)
[2020-08-16 00:07] LABS: MD NO
[2020-08-16 00:10] LABS: ALANINE AMINOTRANSFERASE 36 U/L (12-78); ALBUMIN 3.8 g/dL (3.4-5.0); ANION GAP 15 mmol/L (5-15); CALCIUM 9.1 mg/dL (8.5-10.1); CHLORIDE 100 mmol/L (98-107); CREATININE 0.72 mg/dL (0.55-1.02)
[2020-08-16 00:15] LABS: ALKALINE PHOSPHATASE 87 U/L (45-117); BILIRUBIN,TOTAL 0.7 mg/dL (0.2-1.0); TOTAL PROTEIN 8.4 g/dL (6.4-8.2)
--- NOTE | 2020-08-16 00:26 | NUR ---
EMERGENCY CONTACT: Kash Gutierrez [phone]
[2020-08-16] MEDS ORDERED: HYDROmorphone 1 MG/ML, 1ML INJ IV ONE ×2 (01:00)
[2020-08-16] MEDS ORDERED: HYDROmorphone 1 MG/ML, 1ML INJ ONE (01:13)
--- NOTE | 2020-08-16 01:15 | NUR ---
PT RESTING IN BED, ERP AT BEDSIDE, VSS
--- NOTE | 2020-08-16 02:00 | NUR ---
Patient given discharge instructions and they have confirmed that they understand the instructions. Patient getting dressed.
[2020-08-16 02:01] VITALS: BP 130/81
== END 2020-08-16 02:26 | disposition home or self-care (01) ==
LOC: ED 23:58
DX: K29.20 Alcoholic gastritis without bleeding (principal); R10.13 Epigastric pain; F10.229 Alcohol dependence with intoxication, unspecified; Z72.9 Problem related to lifestyle, unspecified; R00.0 Tachycardia, unspecified; Y90.0 Blood alcohol level of less than 20 mg/100 ml; Z90.49 Acquired absence of other specified parts of digestive tract; Z88.5 Allergy status to narcotic agent
CPT/HCPCS: 36415; 80053; 80320; 83690; 84703; 85025; 93005; 96361; 96372; 96374; 96375; 96376; 99284; J1170; J2550; J7030; G0480

== ENCOUNTER 2020-08-21 10:19 | Inpatient (IN) | payer MEDICAID ==
[~2020-08-21] VITALS: Ht 167.6 cm; Wt 65.3 kg
[2020-08-21] MEDS ORDERED: ONDANSETRON 2MG/ML, 2ML ONE (10:27)
--- NOTE | 2020-08-21 10:27 | NUR ---
Note alvin in EDM - 08/21/20 at 1030 by MARYSOL pt straight back. pt w/ c/o of N/V x1 week. States shes been vomiting bright red blood starting today. Had gall bladder removed july 08, where she had an artery cut. bs 164. pt attached to monitors. Sinus tach on monitors, all other vss. Friend at bedside. awaitng orders.
[2020-08-21] MEDS ORDERED: ONDANSETRON 2MG/ML, 2ML IVPush ONE (10:30)
[2020-08-21] MEDS ORDERED: SODIUM CHLORIDE 0.9% 1,000ML IVBOLUS ONE (10:30)
--- NOTE | 2020-08-21 10:30 | NUR ---
pt straight back. pt w/ c/o of N/V x1 week. States shes been vomiting bright red blood starting today. Had gall bladder removed july 08, where she had an artery cut. bs 164. pt attached to monitors. Sinus tach on monitors, all other vss. Friend at bedside. awaitng orders.
--- NOTE | 2020-08-21 10:39 | NUR ---
DR.VAN TEE AT BEDSIDE FOR EVALUATION. PT MEDICATED PER EMAR. MUSHTAQ. CARMEN.
[2020-08-21 11:10] LABS: MEAN CORPUSCULAR HEMOGLOBIN 31.9 pg (27.0-34.8); MEAN CORPUSCULAR HGB CONC 33.8 g/dL (32.4-35.8); MEAN PLATELET VOLUME 10.2 fL (7.4-10.4); PLATELET COUNT 150 x10^3/uL (130-400); RED BLOOD COUNT 4.84 x10^6/uL (3.82-5.3); RED CELL DISTRIBUTION WIDTH 15.2 % (9.6-15.2)
[2020-08-21 11:20] LABS: ALANINE AMINOTRANSFERASE 52 U/L (12-78); ALBUMIN 3.8 g/dL (3.4-5.0); ANION GAP 11 mmol/L (5-15); CALCIUM 8.9 mg/dL (8.5-10.1); CHLORIDE 100 mmol/L (98-107); CREATININE 0.76 mg/dL (0.55-1.02)
[2020-08-21 11:23] LABS: ALKALINE PHOSPHATASE 109 U/L (45-117); BILIRUBIN,TOTAL 0.6 mg/dL (0.2-1.0); TOTAL PROTEIN 9.1 g/dL (6.4-8.2)
[2020-08-21 11:37] LABS: MD YES
[2020-08-21 11:46] LABS: LYMPH#(MANUAL) 2.13 x10^3/uL (1-3.4); LYMPHS% (MANUAL) 56 % (22-44); MONOS#(MANUAL) 0.23 x10^3/uL (0.3-2.7); MONOS% (MANUAL) 6 % (2-9); SEG#(MANUAL) 1.44 x10^3/uL (1.8-6.8); SEGS% (MANUAL) 38 % (42-75)
--- NOTE | 2020-08-21 11:46 | NUR ---
PT BACK FROM BATHROOM WITH STEADY GAIT. PT ASKING FOR PAIN MEDICATION. RE ATTACHED TO MONITORS. VSS. MORALES.
[2020-08-21 11:47] LABS: <PLATELET ESTIMATE> ADEQUATE; <PLT MORPHOLOGY> NORMAL PLT MORPH; <RBC MORPHOLOGY> NORMAL
--- NOTE | 2020-08-21 11:56 | NUR ---
SPOKE WITH DR. PARKER REGUARDING DRAWING BLOOD CULTURES AND STARTING ANTIBIOTICS DUE TO EVELATED LATIC ACID. NO NEW ORDERS AT THIS TIME.
--- NOTE | 2020-08-21 11:57 | NUR ---
PT RESTING IN BED. NADN. VSS. FRIEND AT BEDSIDE.
[2020-08-21 12:10] LABS: MICROSCOPIC INDICATED
[2020-08-21] MEDS ORDERED: PROCHLORPERAZINE 5 MG/ML, 2ML ONE (12:17)
[2020-08-21 12:24] LABS: AMPHETAMINE SCREEN, URINE Negative (Negative); BARBITURATE SCREEN, URINE Negative (Negative); BENZODIAZEPINE SCREEN, URINE Negative (Negative); CANNABINOID SCREEN, URINE Positive (Negative); COCAINE SCREEN, URINE Negative (Negative); METHADONE SCREEN, URINE Negative (Negative); OPIATE SCREEN, URINE Negative (Negative)
--- NOTE | 2020-08-21 12:25 | NUR ---
Kash, friend, okay to call for ride home. .
[2020-08-21] MEDS ORDERED: NS + 40MEQ KCL 1,000 ML IV ONE ×2 (12:27→16:27)
[2020-08-21] MEDS: NS + 40MEQ KCL 1,000 ML IV SCH ×2 (12:30→16:30)
[2020-08-21] MEDS ORDERED: PROCHLORPERAZINE 5 MG/ML, 2ML IVPush ONE (12:30)
--- NOTE | 2020-08-21 12:52 | NUR ---
PT ASLEEP. MEDICATED PER EMAR. FRIEND AT BEDSIDE. TACHYCARDIC ON MONITOR 120'S. AWARE. MUSHTAQ. CARMEN.
--- NOTE | 2020-08-21 14:25 | NUR ---
Pt remains asleep and connected to all monitors. No N/V.
--- NOTE | 2020-08-21 15:17 | NUR ---
pt asleep. respirations even and unlabored. vss. nadn.
[2020-08-21] MEDS ORDERED: METOCLOPRAMIDE 5 MG/ML, 2ML IVPush ONE (16:00)
[2020-08-21] MEDS ORDERED: OMEP-110 PO (16:11)
--- NOTE | 2020-08-21 16:11 | NUR ---
pt resting in bed. pt tachy in 120s. vss. nadn. awaiting transfer upstairs.
[2020-08-21] MEDS ORDERED: METOCLOPRAMIDE 5 MG/ML, 2ML ONE (16:27)
[2020-08-21] MEDS ORDERED: PANTOPRAZOLE 40 MG IV ONE (16:27)
[2020-08-21] MEDS ORDERED: BUTALB/APAP/CAFFEINE 50MG/325MG/40MG PO PRN (16:30)
[2020-08-21] MEDS ORDERED: MELATONIN 5 MG TABLET PO PRN (16:30)
[2020-08-21] MEDS ORDERED: hydrALAzine 20 MG/ML, 1ML IVPush PRN (16:30)
[2020-08-21] MEDS ORDERED: DOCUSATE 100 MG CAPSULE PO PRN (16:30)
[2020-08-21] MEDS ORDERED: ACETAMINOPHEN 325 MG TABLET PO PRN (16:30)
[2020-08-21] MEDS ORDERED: PANTOPRAZOLE 40 MG IV IVPush ONE (16:30)
[2020-08-21] MEDS ORDERED: ONDANSETRON ODT 4 MG PO PRN (16:30)
[2020-08-21] MEDS ORDERED: THIAMINE 200 MG, MVI ADULT 10 ML, FOLIC ACID 1 MG in D5%-0.9% NACL 1,000 ML IV SCH (16:30)
[2020-08-21] MEDS ORDERED: ENALAPRILAT 1.25 MG/ML, 2ML IVPush PRN (16:30)
[2020-08-21] MEDS: PANTOPRAZOLE 40MG TABLET PO SCH ×2 (17:00→22:33)
[2020-08-21] MEDS ORDERED: LORazepam 0.5MG TABLET PO PRN (17:00)
[2020-08-21] MEDS ORDERED: LORazepam 2 MG/ML, 1ML IV PRN ×2 (17:00)
[2020-08-21] MEDS ORDERED: LORazepam 1MG TABLET PO PRN ×4 (17:00)
[2020-08-21] MEDS: ENOXAPARIN 40 MG/0.4 ML SQ SCH (17:42)
[2020-08-21] MEDS: LORazepam 2 MG/ML, 1ML IV PRN ×3 (17:50→23:36)
[2020-08-21 18:01] VITALS: BP 115/71
[2020-08-21 19:27] VITALS: BP 105/65
[2020-08-21] MEDS: ONDANSETRON 2MG/ML, 2ML IVPush PRN (20:11)
[2020-08-21] MEDS: THIAMINE 200 MG, FOLIC ACID 1 MG in D5%-0.9% NACL 1,000 ML IV SCH (20:25)
[2020-08-21 20:34] LABS: HCG UR SG 1.013 (1.003-1.030)
[2020-08-22 00:06] VITALS: BP 121/77
[2020-08-22] MEDS: morphine SULFATE 10 MG/ML, 1ML IVPush PRN ×7 (00:46→23:58)
[2020-08-22] MEDS ORDERED: TIZA2CAP PO (01:29)
[2020-08-22] MEDS ORDERED: PROP10TA51 PO (01:29)
[2020-08-22] MEDS: ONDANSETRON 2MG/ML, 2ML IVPush PRN ×2 (03:03→16:45)
[2020-08-22 05:30] LABS: BASOPHILS % (AUTO) 0 % (0-1); EOSINOPHILS % (AUTO) 0 % (1-7); LYMPHOCYTES % (AUTO) 21 % (22-44); MEAN CORPUSCULAR HEMOGLOBIN 32.2 pg (27.0-34.8); MEAN CORPUSCULAR HGB CONC 33.8 g/dL (32.4-35.8); MEAN PLATELET VOLUME 10.5 fL (7.4-10.4); MONOCYTES % (AUTO) 11 % (2-9); NEUTROPHILS % (AUTO) 68 % (42-75); PLATELET COUNT 101 x10^3/uL (130-400); RED BLOOD COUNT 3.56 x10^6/uL (3.82-5.3); RED CELL DISTRIBUTION WIDTH 15.1 % (9.6-15.2)
[2020-08-22 05:31] LABS: ANION GAP 7 mmol/L (5-15); CALCIUM 7.7 mg/dL (8.5-10.1); CHLORIDE 106 mmol/L (98-107)
[2020-08-22 05:35] LABS: MD NO
[2020-08-22 05:36] LABS: ALANINE AMINOTRANSFERASE 35 U/L (12-78); ALKALINE PHOSPHATASE 83 U/L (45-117); BILIRUBIN,TOTAL 1.8 mg/dL (0.2-1.0); CREATININE 0.66 mg/dL (0.55-1.02)
[2020-08-22] MEDS: LORazepam 2 MG/ML, 1ML IV PRN ×5 (06:15→22:13)
[2020-08-22 06:38] VITALS: BP 142/96
[2020-08-22] MEDS ORDERED: PANTOPRAZOLE 40MG TABLET PO SCH (07:30)
[2020-08-22] MEDS: MULTIVITAMINS/MINERALS TABLET PO SCH (08:58)
[2020-08-22] MEDS: THIAMINE 100MG TABLET PO SCH (08:59)
[2020-08-22] MEDS: PANTOPRAZOLE 40MG TABLET PO SCH ×2 (08:59→20:32)
[2020-08-22] MEDS ORDERED: MAGNESIUM SULFATE PMX 4GM/100M 100 ML IVPB ONE (09:30)
[2020-08-22 12:51] VITALS: BP 127/88
[2020-08-22] MEDS: THIAMINE 200 MG, FOLIC ACID 1 MG in D5%-0.9% NACL 1,000 ML IV SCH (16:39)
[2020-08-22] MEDS: ENOXAPARIN 40 MG/0.4 ML SQ SCH (16:55)
[2020-08-22 18:20] VITALS: BP 125/91
[2020-08-23] MEDS: LORazepam 2 MG/ML, 1ML IV PRN ×3 (01:19→08:40)
[2020-08-23 01:21] VITALS: BP 137/98
[2020-08-23] MEDS: morphine SULFATE 10 MG/ML, 1ML IVPush PRN ×2 (03:18→07:49)
[2020-08-23 06:21] VITALS: BP 123/87
[2020-08-23 07:28] LABS: BASOPHILS % (AUTO) 0 % (0-1); EOSINOPHILS % (AUTO) 3 % (1-7); LYMPHOCYTES % (AUTO) 21 % (22-44); MEAN CORPUSCULAR HEMOGLOBIN 31.9 pg (27.0-34.8); MEAN PLATELET VOLUME 10.2 fL (7.4-10.4); MONOCYTES % (AUTO) 8 % (2-9); NEUTROPHILS % (AUTO) 67 % (42-75); PLATELET COUNT 98 x10^3/uL (130-400); RED BLOOD COUNT 3.93 x10^6/uL (3.82-5.3); RED CELL DISTRIBUTION WIDTH 15.2 % (9.6-15.2)
[2020-08-23 07:39] LABS: ANION GAP 6 mmol/L (5-15); CALCIUM 8.8 mg/dL (8.5-10.1); CHLORIDE 101 mmol/L (98-107); CREATININE 0.56 mg/dL (0.55-1.02)
[2020-08-23] MEDS: PANTOPRAZOLE 40MG TABLET PO SCH (07:55)
[2020-08-23] MEDS: THIAMINE 100MG TABLET PO SCH (07:55)
[2020-08-23] MEDS: MULTIVITAMINS/MINERALS TABLET PO SCH (07:55)
[2020-08-23 08:13] LABS: MD SCAN
[2020-08-23] MEDS ORDERED: OMEP-110 PO (10:19)
[2020-08-23] MEDS ORDERED: HYDR-826 PO (10:19)
== END 2020-08-23 11:00 | disposition home or self-care (01) | DRG 439 ==
LOC: ED 12:16 → EDIP 16:01 → 3N 16:56
PROVIDERS: ADMIT Family Medicine; ATTEND Hospitalist
DX: K85.20 Alcohol induced acute pancreatitis without necrosis or infection (principal); K92.0 Hematemesis; E83.42 Hypomagnesemia; F10.10 Alcohol abuse, uncomplicated; F43.10 Post-traumatic stress disorder, unspecified; G89.29 Other chronic pain; Z88.6 Allergy status to analgesic agent
CPT/HCPCS: 36415; 96374; 96375; 99285; J7042; 80048; 80053; 80307; 80320; 81001; 81025; 82962; 83605; 83690; 83735; 85025; G0378; J1650; J2405; J3411; C9113; G0480; J0780; J2060; J2270; J2765; J3475; J3480; J7030